=== PATIENT | female | born 1990 | race Caucasian/White ===

== ENCOUNTER 2023-04-05 05:16 | Inpatient (IN) | payer BC ==
[2023-04-05] VITALS (16 sets, daily range): BP systolic 103–137; BP diastolic 52–96; PULSE 54–96; TEMP 98.3
[~2023-04-05] VITALS: Ht 165.1 cm; Wt 123.6 kg
--- NOTE | 2023-04-05 05:30 | NUR ---
Pt arrives ambulatory to unit accompanied by spouse for scheduled repeat . Pt placed on monitors and consents signed. IV placed by Panfilo Sanchez RN and fluids infusing.
--- NOTE | 2023-04-05 06:30 | NUR ---
[id number] THIS RN IN ROOM TO DISCUSS POC, VITAL SIGNS, ADMISSION ASSESSMENT, AND C/S CONSENT WITH PT. PT AGREES TO ALL. PT REPORTS POSITIVE MOVEMENT, NO LOF, FEELING OCCASIONAL CTX BUT NOTHING PAINFUL OR CONSISTENT. WILL FOLLOW POC.
[2023-04-05 06:40] LABS: BASO % 0.3 % (0.0-2.0); EOS # 0.1 K/mm3 (0.0-0.7); EOS % 0.8 % (0.0-4.0); GRAN % 62.4 % (42.2-75.2); HEMATOCRIT 33.8 % (37.0-47.0); HEMOGLOBIN 11.3 g/dl (12.5-16.0); LYMPH # 2.3 K/mm3 (1.2-3.4); LYMPH % 29.5 % (20.0-51.0); MEAN CELL VOLUME 85 fl (80.0-100.0); MEAN CORPUSCULAR HEMOGLOBIN 28 pg (27-31); MEAN CORPUSCULAR HGB CONC 33 g/dl (33.0-37.0); MONO # 0.5 K/mm3 (0.1-0.6); MONO % 6.6 % (1.7-9.3); PLATELET COUNT 147 K/mm3 (130-400); RED BLOOD COUNT 3.99 M/mm3 (4.10-5.30); REDCELL DISTRIBUTION WIDTH-CV 14.6 % (11.5-14.5)
[2023-04-05] MEDS ORDERED: PRENATAL TABLET PO (07:12)
[2023-04-05] MEDS ORDERED: SINGULAIR 110 MG/TAB PO (07:12)
[2023-04-05] MEDS ORDERED: CELEXA 20MG20 MG/TAB PO (07:13)
[2023-04-05] MEDS ORDERED: CLARITIN 1010 MG/TAB PO (07:13)
[2023-04-05] MEDS ORDERED: HUMALOG KW200 UNIT/1 SQ (07:16)
[2023-04-05] MEDS ORDERED: SEMGLEE (Y100 UNIT/2 SQ (07:17)
--- NOTE | 2023-04-05 08:40 | NUR ---
0840 PT TRANSPORTED TO PACU BY BED, SPOUSE PRESENT AND SUPPORTIVE BEDSIDE. VS STABLE, FUNDUS FIRM, LOCIA WNL.
[2023-04-06 00:50] VITALS: BP 120/69; PULSE 71; TEMP 98
[2023-04-06 04:49] VITALS: BP 119/69; PULSE 71; TEMP 98.4
[2023-04-06 06:50] VITALS: BP 102/60; PULSE 68; TEMP 97.9
--- NOTE | 2023-04-06 09:10 | NUR ---
Initial visit; Parents thanked Head Of Operation And Logistics for offering congratulations and God's blessings for the of their son. Head Of Operation And Logistics thanked parents for choosing [facility].
[2023-04-06 16:29] VITALS: BP 106/62; PULSE 72; TEMP 98.1
[2023-04-06 20:15] VITALS: BP 124/66; PULSE 81; TEMP 97.5
[2023-04-07 07:45] VITALS: BP 118/70; PULSE 70; TEMP 98.3
[2023-04-07] MEDS ORDERED: MOTRIN 800800 MG/TAB PO (08:38)
[2023-04-07] MEDS ORDERED: NORCO 325 MG-51 TAB PO (08:38)
== END 2023-04-07 11:20 | disposition home or self-care (01) | DRG 788 ==
LOC: OB 05:16
PROVIDERS: ADMIT Obstetrics & Gynecology
PROC: 10D00Z1 Extraction of Products of Conception, Low, Open Approach (ICD-10-PCS; principal; 2023-04-05)
PROC: 0U900ZZ Drainage of Right Ovary, Open Approach (ICD-10-PCS; 2023-04-05)
PROC: 0JNC0ZZ Release Pelvic Region Subcutaneous Tissue and Fascia, Open Approach (ICD-10-PCS; 2023-04-05)
DX: O34.211 Maternal care for low transverse scar from previous cesarean delivery (principal); Z37.0 Single live birth; O24.425 Gestational diabetes mellitus in childbirth, controlled by oral hypoglycemic drugs; O34.83 Maternal care for other abnormalities of pelvic organs, third trimester; N83.201 Unspecified ovarian cyst, right side; O99.284 Endocrine, nutritional and metabolic diseases complicating childbirth; E78.1 Pure hyperglyceridemia; O99.892 Other specified diseases and conditions complicating childbirth; N73.6 Female pelvic peritoneal adhesions (postinfective); O99.344 Other mental disorders complicating childbirth; F41.9 Anxiety disorder, unspecified; O99.213 Obesity complicating pregnancy, third trimester; O69.81X0 Labor and delivery complicated by cord around neck, without compression, not applicable or unspecified; O99.333 Smoking (tobacco) complicating pregnancy, third trimester; F17.290 Nicotine dependence, other tobacco product, uncomplicated; Z3A.39 39 weeks gestation of pregnancy; Z86.14 Personal history of Methicillin resistant Staphylococcus aureus infection
CPT/HCPCS: J0690; J1885; J2175; J2371; J2405; J2590; J7120